=== PATIENT | male | born 1970 | race Two or more races ===

== ENCOUNTER → 2024-08-07 | Outpatient (CLI) | payer MEDICAID, SELFPAY ==
--- NOTE | 2024-08-07 | XR_ITS ---
Examination: Lumbar spine, 5 views Technique: Lumbar spine AP, lateral, coned lateral lower lumbar spine, bilateral obliques 5 views Exam date and time: August 07, 2024 1935 hrs. Comparison November 02, 2022 Indications: Low back pain radiating down both legs several months. Findings: Moderate osteopenia. Diffuse moderate facet arthropathy Mild to moderate diffuse lumbar disc narrowing most prominent L3-L4 Grade 1 anterolisthesis L5 on S1 Impression: Mild to moderate diffuse lumbar degenerative disc disease most prominent L3-L4
== END | disposition home or self-care (01) ==
LOC: CDIM 06:44
PROVIDERS: PCP Registered Nurse Community Health; Referring Provider Registered Nurse Community Health; Visit Provider Registered Nurse Community Health
DX: M51.369 Other intervertebral disc degeneration, lumbar region without mention of lumbar back pain or lower extremity pain (principal)
CPT/HCPCS: 72110

== ENCOUNTER → 2024-11-18 | Outpatient (CLI) | payer MEDICAID, SELFPAY ==
--- NOTE | 2024-11-18 17:00 | XR_ITS ---
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 Sagittal T2-weighted images, TR 3500, TE 118 T1 weighted transverse sections, TR 688 T8.5, T2-weighted sagittal sections T1 weighted sagittal sections TR 621, TE 30 T2 axial sections, TR 4, 190, TE 84. Findings: Minimal anterolisthesis L5 on S1 No lumbar fracture Disc desiccation lower 4 lumbar levels Mild distention posteriorly L4-L5, L5-S1 L5-S1 no disc protrusion L4-L5 2 mm central left paracentral disc bulge L3-L4 2 mm central lumbar disc bulges L2-L3 2 mm central lumbar disc bulge with central annular disc tear L1-L2 no disc protrusion IMPRESSION: Mild central lumbar disc bulges as above L2-L3 central posterior annular disc tear
== END | disposition home or self-care (01) ==
PROVIDERS: PCP Registered Nurse Community Health; Referring Provider Registered Nurse Community Health; Visit Provider Registered Nurse Community Health
DX: M51.26 Other intervertebral disc displacement, lumbar region (principal); S34.102A Unspecified injury to L2 level of lumbar spinal cord, initial encounter; S34.103A Unspecified injury to L3 level of lumbar spinal cord, initial encounter; X58.XXXA Exposure to other specified factors, initial encounter
CPT/HCPCS: 72148